=== PATIENT | female | born 1955 | race Caucasian/White ===

== ENCOUNTER → 2017-11-09 | Outpatient (CLI) | payer OTHER ==
[~2017-11-09] MED LIST: GADOBUTROL 10 ML VIAL IVP ONE
== END ==
LOC: FIMAGING 08:16
PROVIDERS: ATTEND Neurological Surgery
DX: D32.0 Benign neoplasm of cerebral meninges (principal)
CPT/HCPCS: A9585

== ENCOUNTER → 2019-02-02 | Outpatient (CLI) | LOC: EMCIMAGING 18:04 → MERGE 18:04 | PROVIDERS: ATTEND Nurse Practitioner Acute Care | DX: R05 Cough (principal); R06.02 Shortness of breath | CPT/HCPCS: 71046-PN ==

== ENCOUNTER 2019-03-06 09:12 | Inpatient (IN) | payer OTHER ==
[2019-03-06] MEDS ORDERED: NS 1,000 ML IV ONE ×2 (09:13→14:49)
[2019-03-06] MEDS ORDERED: DIAZEPAM 5 MG TAB PO ONE (09:13)
[2019-03-06] MEDS ORDERED: ASPIRIN EC 325 MG TAB PO ONE (09:13)
[2019-03-06] MEDS ORDERED: FAMOTIDINE 20 MG TAB PO ONE (09:13)
[2019-03-06] MEDS ORDERED: diphenhydrAMINE 25 MG CAP PO ONE (09:13)
[2019-03-06 10:05] LABS: PLATELET COUNT 269 10^3/uL (150-400)
[2019-03-06 10:12] LABS: INR 0.97 (0.83-1.16); PROTIME(PATIENT) 12.5 SEC (12.0-15.0)
[2019-03-06] MEDS ORDERED: LIDOCAINE 1% 300 MG/30 ML SDV ONE (10:13)
[2019-03-06] MEDS ORDERED: MIDAZOLAM 2 MG/2 ML VIAL ONE ×2 (10:13→11:22)
[2019-03-06] MEDS ORDERED: VERAPAMIL 5 MG/2 ML VIAL ONE (10:13)
[2019-03-06] MEDS ORDERED: fentaNYL 100 MCG/2 ML INJ ONE (10:13)
[2019-03-06] MEDS ORDERED: HEPARIN 10,000 UNIT/10 ML MDV (1,000 UNIT/ML) ONE (10:13)
[2019-03-06] MEDS ORDERED: IOPAMIDOL (ISOVUE-370) 150 ML BTL IV ONE (10:13)
[2019-03-06] MEDS ORDERED: EPINEPHrine 1 MG/10 ML SYR IVP ONE (10:26)
[2019-03-06] MEDS ORDERED: FAMOTIDINE 20 MG/NACL/50 ML BAG IV ONE (10:26)
[2019-03-06] MEDS ORDERED: methylPREDNISolone SOD SUCC 125 MG/2 ML VIAL ONE (10:26)
[2019-03-06] MEDS ORDERED: ONDANSETRON 4 MG/2 ML VIAL ONE (10:29)
[2019-03-06] MEDS ORDERED: ONDANSETRON 4 MG/2 ML VIAL IVP PRN (11:28)
[2019-03-06] MEDS ORDERED: NITROGLYCERIN 0.4 MG BTL SL PRN (11:28)
--- NOTE | 2019-03-06 11:29 | PDHPUP ---
History & Physical Update H&P update statement: This history and physical update is based on an assessment of the patient which was completed after admission or registration (within 24 hours), but prior to the surgery/procedure. H&P update: H&P reviewed & patient examined, no change in patient's condition since H&P completed
--- NOTE | 2019-03-06 11:29 | PDPROPOC ---
Sedation Plan of Care Sedation Plan of Care: vital signs stable, mental status noted, patient educated of risks, benefits, alternatives, patient can tolerate sedation ASA Classification: ASA 2 Planned drugs: fentanyl, midazolam Mallampati Score: Class 1 Mallampati Reference Image: Patient passed 3-3-2 rule?: Yes
--- NOTE | 2019-03-06 11:31 | PDDXCAT ---
Diagnostic Cath Note - . Date: 03/06/19 Hr Clerk: Juan Indication: other (Pre-op mitral valve repair.) - Procedure Access: right wrist Procedure: left heart catheterization, left ventriculogram, right heart catheterization - Materials Left Heart Cath size: 5F Left Heart Cath materials: pigtail, other ([place] 4) Right Heart Cath size: 5F Right Heart Cath materials: PWP catheter - Findings-Left Heart Catheterization LM: Normal LAD: Normal LCX: Normal RCA: Dominant: Normal - Findings-Right Heart Catheterization RA: 8 mm of mercury RV: 36/8 mm of mercury PA: 36/13 mm of mercury PAOP: 10 mm of mercury Complications: None Estimated blood loss: <50ml Closure method: TR Band Assessment: Normal right heart hemodynamics. Normal coronary arteries. Normal LV systolic function Patient Problems: Problems Problem Status Onset Chest pain Acute
--- NOTE | 2019-03-06 13:49 | PDGENHP ---
History and Physical - Chief Complaint SOB - History of Present Illness This is a pleasant 63F who presented today for elective LHC/RHC in preparation for MVR/R, TVR/R. She was originally seen in full consultation with Dr. Boudreaux in 2018. Surgery was recommended at that time, however, placed on hold due to insurance issues. She has had progressive MR (mild-moderate 2014, moderate- severe 2017) and TR (mild 2014, mild-moderate 2017). She continues to have SOB with evening peripheral edema (worse on R>L). This improves in the AM. LHC/RHC today demonstrates an absence of CAD with normal PA pressures. , Julio, is with her. They live in an [place] house with multiple stairs. No fever, chills, malaise. Previous Holter negative for afib. No chest surgery. History Information - Allergies/Home Medication List Allergies/Adverse Reactions: amoxicillin trihydrate [From Augmentin] Allergy (Verified 02/26/19 12:42) STOMACH PAIN/UPSET, NAUSEA codeine [Codeine] Allergy (Verified 02/26/19 12:42) "FEELS WIRED" Gadolinium-Containing Contrast Medi Allergy (Verified 02/26/19 12:42) gluten Allergy (Verified 02/26/19 12:42) latex Allergy (Verified 02/26/19 12:42) Rash potassium clavula *RETIRED-08/07/12 [From Augmentin] Allergy (Verified 02/26/19 12:42) STOMACH PAIN/UPSET, NAUSEA Home Medications: Hormone Cream 1 diana TD DAILY 03/01/19 [Last Taken Unknown] Azelastine [Astelin Nasal [place] (RX)] 1 sprays EACHNARE BID PRN 03/01/19 [Last Taken Unknown] Benzonatate [Tessalon Pearles (RX)] 100 mg PO TID PRN 03/01/19 [Last Taken Unknown] Diltiazem HCl [Diltiazem 24Hr ER] 120 mg PO HS 03/01/19 [Last Taken Unknown] FLUoxetine [Prozac 20 MG (*)] 20 mg PO DAILY 03/01/19 [Last Taken Unknown] Levalbuterol Inhaler [Xopenex Hfa Inhaler (*)] 2 puffs IH Q6H PRN 03/01/19 [ Last Taken Unknown] Montelukast Sodium [Singulair 10 mg (*)] 10 mg PO DAILY@1800 03/01/19 [Last Taken Unknown] buPROPion [Wellbutrin 75mg (*)] 75 mg PO DAILY 03/01/19 [Last Taken Unknown] I have personally reviewed and updated: family history, medical history, social history, surgical history - Past Medical History Additional medical history: sjogrens, pulm nodules, UTI's - Surgical History Reports: no pertinent surgical hx - Social History Smoking Status: Former smoker Tobacco Use: Other (remote) Review of Systems Review of Systems: ROS: 2-9 pt reviewed & negative except for what was stated in HPI & below Physical Exam Physical Exam: Constitutional: no apparent distress, appears nourished Ears, Nose, Mouth, Throat: hearing normal, ears appear normal, dry mucous membranes Cardiovascular: regular rate and rhythym, systolic murmur, other (trace edema LE b/l; radial artery cath splint ) Respiratory: no respiratory distress, no rales or rhonchi, clear to auscultation Gastrointestinal: soft, non-tender abdomen Skin: warm, normal color Neurologic: AAOx3 Psychiatric: interacting appropriately, thought process linear Lab Data & Imaging Review 03/06/19 09:30 03/06/19 09:30 WBC 5.47 10^3/uL (3.80-9.50) 03/06/19 09:30 RBC 4.47 10^6/uL (4.18-5.33) 03/06/19 09:30 Hgb 13.3 g/dL (12.6-16.3) 03/06/19 09:30 Hct 39.8 % (38.0-47.0) 03/06/19 09:30 MCV 89.0 fL (81.5-99.8) 03/06/19 09:30 MCH 29.8 pg (27.9-34.1) 03/06/19 09:30 MCHC 33.4 g/dL (32.4-36.7) 03/06/19 09:30 RDW 13.5 % (11.5-15.2) 03/06/19 09:30 Plt Count 269 10^3/uL (150-400) 03/06/19 09:30 MPV 9.7 fL (8.7-11.7) 03/06/19 09:30 Neut % (Auto) 63.8 % (39.3-74.2) 03/06/19 09:30 Lymph % (Auto) 23.6 % (15.0-45.0) 03/06/19 09:30 [place] % (Auto) 9.3 % (4.5-13.0) 03/06/19 09:30 Eos % (Auto) 2.4 % (0.6-7.6) 03/06/19 09:30 Baso % (Auto) 0.7 % (0.3-1.7) 03/06/19 09:30 Nucleat RBC Rel Count 0.0 % (0.0-0.2) 03/06/19 09:30 Absolute Neuts (auto) 3.49 10^3/uL (1.70-6.50) 03/06/19 09:30 Absolute Lymphs (auto) 1.29 10^3/uL (1.00-3.00) 03/06/19 09:30 Absolute Monos (auto) 0.51 10^3/uL (0.30-0.80) 03/06/19 09:30 Absolute Eos (auto) 0.13 10^3/uL (0.03-0.40) 03/06/19 09:30 Absolute Basos (auto) 0.04 10^3/uL (0.02-0.10) 03/06/19 09:30 Absolute Nucleated RBC 0.00 10^3/uL (0-0.01) 03/06/19 09:30 Immature Gran % 0.2 % (0.0-1.1) 03/06/19 09:30 Immature Gran # 0.01 10^3/uL (0.00-0.10) 03/06/19 09:30 PT 12.5 SEC (12.0-15.0) 03/06/19 09:30 INR 0.97 (0.83-1.16) 03/06/19 09:30 Sodium 135 mEq/L (135-145) 03/06/19 09:30 Potassium 4.2 mEq/L (3.5-5.2) 03/06/19 09:30 Chloride 102 mEq/L (97-110) 03/06/19 09:30 Carbon Dioxide 22 mEq/l (22-31) 03/06/19 09:30 Anion Gap 11 mEq/L (6-14) 03/06/19 09:30 BUN 10 mg/dL (7-23) 03/06/19 09:30 Creatinine 0.6 mg/dL (0.6-1.0) 03/06/19 09:30 Estimated GFR > 60 03/06/19 09:30 Glucose 92 mg/dL (70-100) 03/06/19 09:30 Hemoglobin A1c 5.2 % (4.0-6.0) 03/06/19 09:30 Estim Average Glucose 103 mg/dL (68-126) 03/06/19 09:30 Calcium 9.3 mg/dL (8.5-10.4) 03/06/19 09:30 Magnesium 2.1 mg/dL (1.6-2.3) 03/06/19 09:30 Triglycerides 85 mg/dL (35-135) 03/06/19 09:30 Cholesterol 169 mg/dL (140-220) 03/06/19 09:30 Cholesterol Risk Factr 0.5 (0.2-1.0) 03/06/19 09:30 LDL Cholesterol, Calc 93 mg/dL (80-100) 03/06/19 09:30 LDL Risk Factor 0.6 (0.2-1.0) 03/06/19 09:30 VLDL Cholesterol 17 mg/dL (8-25) 03/06/19 09:30 Non-HDL Cholesterol 110 mg/dL (90-129) 03/06/19 09:30 HDL Cholesterol 59 mg/dL (40-85) 03/06/19 09:30 LDL/HDL Ratio 1.58 RATIO (1.00-3.22) 03/06/19 09:30 Cholesterol/HDL Ratio 2.86 RATIO (1.00-4.44) 03/06/19 09:30 Patient ABO/Rh A POSITIVE 03/06/19 09:30 Antibody Screen NEGATIVE 03/06/19 09:30 Imaging Review: 03/21/2018 ECHO: Normal size left ventricle. Borderline concentric LV hypertrophy. EF is 62 %. The left atrium is severely dilated. Moderate to severe mitral regurgitation. Mild to moderate tricuspid valve regurgitation. Right Ventricular systolic pressure is measured at 31 mmHg. No pericardial effusion. 10/12/2016 ECHO: 62%. Mild LVH. Normal left ventricular systolic function with no regional wall motion abnormalities noted. oderate MR, mild TR. (MR is eccentric, moderate and posterior directed). Interatrial septal aneurysm noted and (no color Doppler across atrial septum to suggest a PFO or ASD). 10/10/2015 ECHO: EF 60% LV size: normal. LV thickness: normal. Normal LVSF with no regional wall motion abnormalities noted. LVDF: Normal. RV size: normal. RV function: normal. LA: normal size. RA: normal size. Aortic, mitral, tricuspid, and pulmonic valves are normal in appearance. Mild to moderate MR and mild TR. Normal RVSP. No pericardial effusion seen. 10/08/2015 Holter 48-hr: 1. Normal sinus rhythm with average heart rate of 70 . range 49 to 104 beats2. Rare PACs with occasional SVT self-limited and asymptomaticup to 18 beats. 3. Rare PVCs. 4. 2 symptoms. Both occurred in normal sinus rhythm. 5. No significant pauses 10/15/2015 MPI/NUC: Myocardial Perfusion Imaging: shows normal homogenous uptake of tracer equally in all myocardial regions on stress and rest imaging. There are no significant reversible defects suggestive of ischemia.There is normal left ventricular systolic function with no wall motion abnormalities with normal thickening . Ejection fraction is normal at >70 % LHC/RHC 03/06 LM: Normal LAD: Normal LCX: Normal RCA: Dominant: Normal RA: 8 mm of mercury RV: 36/8 mm of mercury PA: 36/13 mm of mercury PAOP: 10 mm of mercury CUS 03/06 1. There is mild bilateral atherosclerotic plaque, with some tortuosity of the right mid-internal carotid artery likely explaining the slightly increased measured velocities in this location. There is no hemodynamically significant stenosis associated with the left internal carotid artery. 2. Antegrade, patent vertebral arteries. Measurement of carotid stenosis is based on velocity parameters that correlate the residual internal carotid diameter with [place] Symptomatic Carotid Endarterectomy Trial (NASCET) based stenosis levels. EKG 03/06 NSR 76, LAE, ventricular trigeminy CXR 02/02/19 Findings: Nodular opacities in the right lung base are grossly stable, without focal consolidation, pneumothorax, or pleural effusion. Heart size is normal. Levoscoliosis of the thoracolumbar junction is present with multilevel degenerative change. Assessment & Plan Assessment: Moderate to severe MR Mild to moderate TR Left atrial dilatation EF 62% Normal coronary arteries Hyperlipidemia Plan: MVR/R, TVR/R tomorrow with Dr. Boudreaux. If patient needs replacement, she requests tissue valve and is not interested in lifelong anticoagulation.
--- NOTE | 2019-03-06 14:44 | CPEKG ---
Test Reason : OPEN Blood Pressure : / mmHG Vent. Rate : 076 BPM Atrial Rate : 075 BPM P-R Int : 156 ms QRS Dur : 087 ms QT Int : 418 ms P-R-T Axes : -09 011 025 degrees QTc Int : 471 ms Sinus rhythm Ventricular trigeminy Probable left atrial enlargement Confirmed by Ramin Martinez ([id number]) on 03/06/2019 2:44:18 PM Referred By: Unruly Loja Confirmed By:Ramin Martinez
[2019-03-06] MEDS ORDERED: AMINOCAPROIC ACID 5 GM/20 ML VIAL IV ONE (14:49)
[2019-03-06] MEDS ORDERED: PHENYLEPHRINE HCL 50 MG in NS 250 ML IV ONE (14:49)
[2019-03-06] MEDS ORDERED: ceFAZolin 2 GM/DEXTROSE 100 ML IV ONE (14:49)
[2019-03-06] MEDS ORDERED: INSULIN REGULAR HUMAN 100 UNIT in NS 100 ML IV ONE (14:49)
[2019-03-06] MEDS ORDERED: LIDOCAINE 1% 2 ML INJ ID PRN (14:49)
[2019-03-06] MEDS ORDERED: MANNITOL 25% 12.5 GM/50 ML VIAL IVP ONE (14:49)
[2019-03-06] MEDS ORDERED: CARDIOPLEGIC SOLUTION 1,052.8 ML PF ONE (14:49)
[2019-03-06] MEDS ORDERED: NOREPINEPHRINE BITARTRATE 16 MG in NS 250 ML IV ONE (14:49)
[2019-03-06] MEDS ORDERED: MUPIROCIN 2% 22 GM OINT NS ONE (14:49)
[2019-03-06] MEDS ORDERED: CITRATE DEXTROSE SOLN 500 ML BAG MISC ONE (14:49)
[2019-03-06] MEDS ORDERED: LEVALBUTEROL INHALER 200 PUFFS/15 GM MDI IH PRN (15:06)
[2019-03-06] MEDS ORDERED: AZELASTINE NASAL MDI EACHNARE PRN (15:06)
[2019-03-06] MEDS ORDERED: CHLORHEXIDINE GLUC HIBICLENS 118 ML BTL TP SCH (21:00)
[2019-03-06] MEDS ORDERED: DILTIAZEM CD 120 MG CAP PO SCH (21:00)
[2019-03-06] MEDS: BENZONATATE 100 MG CAP PO PRN (21:49)
[2019-03-06] MEDS: MONTELUKAST SODIUM 10 MG TAB PO SCH (21:50)
[2019-03-07] MEDS ORDERED: MILRINONE/DEXTROSE/100 ML BAG IV ONE (06:15)
[2019-03-07] MEDS ORDERED: CALCIUM CHLORIDE 1 GM/10 ML INJ ONE ×2 (06:15→06:16)
[2019-03-07] MEDS ORDERED: HEPARIN 10,000 UNIT/10 ML MDV (1,000 UNIT/ML) ONE ×2 (06:15→06:17)
[2019-03-07] MEDS ORDERED: AMINOCAPROIC ACID 5 GM/20 ML VIAL ONE ×2 (06:15→06:17)
[2019-03-07] MEDS ORDERED: niCARdipine/NACL/200 ML BAG IV ONE (06:15)
[2019-03-07] MEDS ORDERED: PROTAMINE SULFATE 50 MG/5 ML VIAL IVP ONE (06:15)
[2019-03-07] MEDS ORDERED: NA BICARBONATE 50 MEQ/50 ML VIAL ONE (06:15)
[2019-03-07] MEDS ORDERED: ADENOSINE 6 MG/2 ML VIAL ONE (06:16)
[2019-03-07] MEDS ORDERED: AMIODARONE HCL 150 MG/3 ML VIAL ONE ×2 (06:16→06:17)
[2019-03-07] MEDS ORDERED: ceFAZolin 1 GM VIAL ONE (06:16)
[2019-03-07] MEDS ORDERED: NITROGLYCERIN/D5W 50 MG/250 ML BOTTLE IV ONE (06:16)
[2019-03-07] MEDS ORDERED: DOPamine/DEXTROSE 400 MG/250 ML BAG IV ONE (06:16)
[2019-03-07] MEDS ORDERED: ALBUMIN 5% 250 ML BOTTLE IV ONE ×3 (06:16→16:35)
[2019-03-07] MEDS ORDERED: methylPREDNISolone SOD SUCC 1 GM/8 ML VIAL ONE (06:17)
[2019-03-07] MEDS ORDERED: CITRATE DEXTROSE SOLN 500 ML BAG ONE (06:17)
[2019-03-07] MEDS ORDERED: LIDOCAINE 2% 100 MG/5 ML SYR ONE ×2 (06:17→09:00)
[2019-03-07] MEDS ORDERED: MAGNESIUM SULFATE 1 GM/2 ML VIAL ONE (06:17)
[2019-03-07] MEDS ORDERED: PHENYLEPHRINE HCL 50 MG in NS 250 ML IV ONE (07:00)
[2019-03-07] MEDS ORDERED: CITRATE DEXTROSE SOLN 500 ML BAG MISC ONE (07:00)
[2019-03-07] MEDS ORDERED: MUPIROCIN 2% 22 GM OINT NS ONE (07:00)
[2019-03-07] MEDS ORDERED: AMINOCAPROIC ACID 5 GM/20 ML VIAL IV ONE (07:00)
[2019-03-07] MEDS ORDERED: NOREPINEPHRINE BITARTRATE 16 MG in NS 250 ML IV ONE (07:00)
[2019-03-07] MEDS ORDERED: NS 1,000 ML IV ONE ×2 (07:00→21:30)
[2019-03-07] MEDS ORDERED: CARDIOPLEGIC SOLUTION 1,052.8 ML PF ONE (07:00)
[2019-03-07] MEDS ORDERED: INSULIN REGULAR HUMAN 100 UNIT in NS 100 ML IV ONE (07:00)
[2019-03-07] MEDS ORDERED: ceFAZolin 2 GM/DEXTROSE 100 ML IV ONE (07:00)
[2019-03-07] MEDS ORDERED: LIDOCAINE 1% 2 ML INJ ID PRN (07:00)
[2019-03-07] MEDS ORDERED: MANNITOL 25% 12.5 GM/50 ML VIAL IVP ONE (07:00)
[2019-03-07] MEDS ORDERED: LR 1,000 ML IV ONE (07:40)
--- NOTE | 2019-03-07 07:54 | PDHPUP ---
History & Physical Update H&P update statement: This history and physical update is based on an assessment of the patient which was completed after admission or registration (within 24 hours), but prior to the surgery/procedure. H&P update: no change in patient's condition since H&P completed
[2019-03-07] MEDS ORDERED: MIDAZOLAM 2 MG/2 ML VIAL IVP ONE (08:35)
[2019-03-07] MEDS ORDERED: MINERAL OIL 10 ML VIAL ONE (08:40)
[2019-03-07] MEDS ORDERED: MIDAZOLAM 2 MG/2 ML VIAL ONE ×3 (08:41→08:57)
--- NOTE | 2019-03-07 08:42 | PDANEPAE ---
ANE History of Present Illness MR and TR s/f MVR and TVR ANE Past Medical History - Cardiovascular History Hx Hypertension: Yes Hx Arrhythmias: No Hx Chest Pain: No Hx Coronary Artery / Peripheral Vascular Disease: No Hx CHF / Valvular Disease: Yes Hx Palpitations: Yes Cardiovascular History Comment: mitral valve prolapse. tricupsid valve disorder. pulm htn - Pulmonary History Hx COPD: No Hx Asthma/Reactive Airway Disease: Yes Hx Recent Upper Respiratory Infection: No Hx Oxygen in Use at Home: No Hx Sleep Apnea: Yes Sleep Apnea Screening Result - Last Documented: Positive Pulmonary History Comment: hx of bronchitis. asthma r/t allergies. delaney positive uses cpap. chronic cough - Neurologic History Hx Cerebrovascular Accident: No Hx Seizures: No Hx Dementia: No Neurologic History Comment: DDD. hx of migraines - Endocrine History Hx Diabetes: No Endocrine History Comment: sjogrens syndrome - Renal History Hx Renal Disorders: Yes Renal History Comment: frequency - Liver History Hx Hepatic Disorders: Yes Hepatic History Comment: hx of fatty liver disease several years ago- pt reports liver numbers have been good since - Neurological & Psychiatric Hx Hx Neurological and Psychiatric Disorders: Yes Neurological / Psychiatric History Comment: anxiety. depression - Cancer History Hx Cancer: Yes Cancer History Comment: basal cell removed from arm a few years ago - Congenital Disorder History Hx Congenital Disorders: No - GI History Hx Gastrointestinal Disorders: Yes Gastrointestinal History Comment: reflux. IBS. hx of egd and colonoscopy - Other Health History Other Health History: wears glasses. bilateral hearing aides. eczema spot on arm. fibromyalgia - Chronic Pain History Chronic Pain: Yes (fibromyalgia) - Surgical History Prior Surgeries: juan. colonoscopy. egd. thyroid lobectomy. t&a. wisdom teeth ANE Review of Systems Review of Systems: - Exercise capacity METS (RN): 3 METS ANE Patient History - Allergies Allergies/Adverse Reactions: amoxicillin trihydrate [From Augmentin] Allergy (Verified 02/26/19 12:42) STOMACH PAIN/UPSET, NAUSEA codeine [Codeine] Allergy (Verified 02/26/19 12:42) "FEELS WIRED" Gadolinium-Containing Contrast Medi Allergy (Verified 02/26/19 12:42) gluten Allergy (Verified 02/26/19 12:42) latex Allergy (Verified 02/26/19 12:42) Rash potassium clavula *RETIRED-08/07/12 [From Augmentin] Allergy (Verified 02/26/19 12:42) STOMACH PAIN/UPSET, NAUSEA - Home Medications Home medications: home medication list seen and reviewed Home Medications: Hormone Cream 1 diana TD DAILY 03/01/19 [Last Taken Unknown] Azelastine [Astelin Nasal [place] (RX)] 1 sprays EACHNARE BID PRN 03/01/19 [Last Taken Unknown] Benzonatate [Tessalon Pearles (RX)] 100 mg PO TID PRN 03/01/19 [Last Taken Unknown] Diltiazem HCl [Diltiazem 24Hr ER] 120 mg PO HS 03/01/19 [Last Taken Unknown] FLUoxetine [Prozac 20 MG (*)] 20 mg PO DAILY 03/01/19 [Last Taken Unknown] Levalbuterol Inhaler [Xopenex Hfa Inhaler (*)] 2 puffs IH Q6H PRN 03/01/19 [ Last Taken Unknown] Montelukast Sodium [Singulair 10 mg (*)] 10 mg PO DAILY@1800 03/01/19 [Last Taken Unknown] buPROPion [Wellbutrin 75mg (*)] 75 mg PO DAILY 03/01/19 [Last Taken Unknown] - NPO status NPO Status: no food or drink >8 hours NPO Since - Liquids (Date): 03/06/19 NPO Since - Liquids (Time): 22:30 NPO Since - Solids (Date): 03/07/19 NPO Since - Solids (Time): 07:00 - Anes Hx Anes Hx: no prior problems - Smoking Hx Smoking Status: Former smoker - Alcohol Use Alcohol Use: None - Family Anes Hx Family Anes Hx: none Family Hx Anesthesia Complications: none ANE Labs/Vital Signs - Labs Result Diagrams: 03/06/19 09:30 03/06/19 09:30 - Vital Signs Blood Pressure: 152/79 Heart Rate: 87 Respiratory Rate: 16 O2 Sat (%): 93 Height: 165.1 cm Weight: 93.4 kg ANE Physical Exam - Airway Neck exam: FROM Mallampati Score: Class 2 Mouth exam: poor dentition - Pulmonary Pulmonary: no respiratory distress - Cardiovascular Cardiovascular: regular rate and rhythym - ASA Status ASA Status: III ANE Anesthesia Plan Anesthesia Plan: general endotracheal anesthesia Lines/Monitors: arterial line, central line, NUPUR
[2019-03-07] MEDS ORDERED: fentaNYL 250 MCG/5 ML INJ ONE (08:56)
[2019-03-07] MEDS ORDERED: REMIFENTANIL HCL 1 MG VIAL ONE (08:56)
[2019-03-07] MEDS ORDERED: PROPOFOL/EMULSION 500 MG/50 ML BOTTLE IV ONE (08:56)
[2019-03-07] MEDS ORDERED: ePHEDrine SULFATE 25 MG/5 ML SYR ONE (08:57)
[2019-03-07] MEDS ORDERED: ROCURONIUM 100 MG/10 ML VIAL ONE (08:57)
[2019-03-07] MEDS ORDERED: DEXAMETHASONE 4 MG/ML VIAL ONE ×2 (08:57)
[2019-03-07] MEDS ORDERED: PHENYLEPHRINE HCL 100 MCG/ML SYR ONE (08:58)
[2019-03-07] MEDS ORDERED: DEXMEDETOMIDINE HCL 400 MCG in NS 100 ML IV SCH (09:00)
[2019-03-07] MEDS ORDERED: ONDANSETRON 4 MG/2 ML VIAL ONE (09:02)
[2019-03-07] MEDS ORDERED: LIDOCAINE HCL 160 MG/4 ML LTA KIT TP ONE (09:07)
--- NOTE | 2019-03-07 09:21 | ASMTCMCOM ---
CM Note CM Note Notes: Pt is a 63 y/o female admitted for shortness of breath. Pt is having open heart surgery today. Needs are TBD at this time. CM to follow. Plan: TBD Date Signed: 03/07/2019 09:20 AM Electronically Signed By:HALEY Shannon
[2019-03-07] MEDS ORDERED: ALBUTEROL 60 PUFFS/8 GM MDI IH PRN (09:24)
[2019-03-07] MEDS ORDERED: ESMOLOL HCL 100 MG/10 ML VIAL IV ONE (10:02)
[2019-03-07] MEDS ORDERED: KETOROLAC 30 MG/1 ML SDV ONE (10:21)
[2019-03-07] MEDS ORDERED: SUGAMMADEX SODIUM 200 MG/2 ML VIAL IVP ONE (11:59)
[2019-03-07] MEDS ORDERED: POTASSIUM Cl (KCl) 50 ML IV PRN (12:23)
[2019-03-07] MEDS ORDERED: ACETAMINOPHEN 650 MG SUPP PR PRN (12:23)
[2019-03-07] MEDS ORDERED: D50W 25 GM/50 ML SYR IVP PRN (12:23)
[2019-03-07] MEDS ORDERED: LACTULOSE 20 GM/30 ML UDCUP PO PRN (12:23)
[2019-03-07] MEDS ORDERED: BISACODYL 10 MG SUPP PR PRN (12:23)
[2019-03-07] MEDS ORDERED: CEPACOL LOZENGE PO PRN (12:23)
[2019-03-07] MEDS ORDERED: SODIUM CL NASAL 45 ML BTL EACHNARE PRN (12:23)
[2019-03-07] MEDS ORDERED: MEPERIDINE 25 MG/0.5 ML AMP IVP PRN (12:23)
[2019-03-07] MEDS ORDERED: PANTOPRAZOLE SODIUM 40 MG VIAL IVP ONE (12:23)
[2019-03-07] MEDS ORDERED: MAGNESIUM HYDROXIDE 30 ML UDCUP PO PRN (12:23)
[2019-03-07] MEDS ORDERED: NS 1,000 ML IV SCH (12:30)
[2019-03-07] MEDS ORDERED: INSULIN REGULAR HUMAN 100 UNIT in NS 100 ML IV SCH (12:30)
[2019-03-07] MEDS ORDERED: fentaNYL 100 MCG/2 ML INJ ONE (12:31)
[2019-03-07] MEDS: fentaNYL 100 MCG/2 ML INJ IVP PRN ×2 (13:00→16:38)
--- NOTE | 2019-03-07 13:01 | PDMN ---
Medical Necessity Medical necessity: Change to inpt as of 03/07/19 @ 12:38, meets inpt criteria per MD order and [facility] S-290, Cardiac Valve Replacement or Repair, MCR IP only list, 5 days. Initially admitted as OBS on 03/06/19 for pre-OHS LHC, upgraded to inpt for s/p MVR, TVR, PVI, and TAMEKA. Anticipate>2MN for ongoing med nec care.
--- NOTE | 2019-03-07 13:10 | GOP ---
[f rep st] OPERATIVE REPORT DATE OF OPERATION: 03/07/2019 SURGEON: Demond Boudreaux DO BILLPOSTER: BALDO Love ANESTHESIA: Ruddy Gill MD PREOPERATIVE DIAGNOSIS: Mitral insufficiency, tricuspid insufficiency. POSTOPERATIVE DIAGNOSIS: Mitral insufficiency, tricuspid insufficiency. PROCEDURE PERFORMED: 1. Mitral valve repair with a #26 Physio II annuloplasty ring. 2. Tricuspid valve annuloplasty with a #30 Benitez annuloplasty ring. 3. Atrial clip to left atrial appendage with a 40 mm clip. 4. Bilateral pulmonary vein ablation. FINDINGS: INDICATIONS: Patient presented with a history of multiple palpitations and markedly enlarged left at rium and severe mitral insufficiency, as well as secondary tricuspid insufficiency, quite symptomatic with shortness of breath. DESCRIPTION OF PROCEDURE: She was consented for surgery, brought to the operating room, intubated. Monitoring lines were placed. She was prepped and draped in sterile classical manner. Intraoperativ e NUPUR confirmed mitral and tricuspid insufficiency. Sternotomy was performed. She was heparinized a nd cannulated. We initiated cardiopulmonary bypass because of her markedly enlarged left atrium and a history of multiple palpitations. Bilateral pulmonary vein ablation was performed on pump with 3 o verlapping lines with the last of each line ablation being less than 5 seconds. We then arrested the heart with antegrade cardioplegia using [place] solution. Left atrial appendage and atrial clip pl aced avoiding the circumflex vessel. The tip of it was excised to allow it to decompress. We then e xposed the mitral valve through the right superior pulmonary vein. Circumferential sutures were plac ed. Patient was sized for a 26 ring. She had predominantly posterior annular dilatation. The valve was competent post repair. The left atrium was closed. CO2 had been infused throughout the procedu re. We then patient placed the patient in Trendelenburg, performed an atriotomy, placed circumferent ial annuloplasty suture rings. We sized the patient for a 30 Benitez ring, which was secured in plac e with Cor-Knots. Right atrium was closed. Cross-clamp was removed with suction on the ascending ao rtic vent. Intermittent aspiration in Trendelenburg through the apex was performed until no further air was identified. The patient was then easily weaned from bypass. There was no mitral regurg on e cho or tricuspid regurg on echo. Biventricular function appeared preserved. Cannulae were removed a nd oversewn. Two ventricular pacing wires, 1 right pleural, 1 mediastinal drain, were placed. The t hymic fat and pericardium were closed. Chest was closed in standard fashion. Patient was returned t o ICU in stable condition. /[id number]/MODL
[2019-03-07] MEDS: ALBUMIN 5% 250 ML IV PRN ×2 (13:36→14:04)
[2019-03-07] MEDS: ceFAZolin 2 GM/DEXTROSE 100 ML IV SCH ×2 (14:02→21:46)
[2019-03-07] MEDS: HEPARIN 5,000 UNIT/0.5 ML INJ SC SCH ×2 (14:30→21:46)
[2019-03-07] MEDS: ONDANSETRON 4 MG/2 ML VIAL IVP PRN (15:11)
[2019-03-07] MEDS ORDERED: HYDROmorphONE/DILAUDID 6 MG/30 ML PCA IV PRN (16:50)
[2019-03-07] MEDS ORDERED: NALOXONE HCL 0.4 MG/ML INJ IVP PRN (16:50)
[2019-03-07] MEDS ORDERED: ALBUMIN 5% 250 ML IV ONE (17:00)
[2019-03-07] MEDS: MONTELUKAST SODIUM 10 MG TAB PO SCH (17:47)
[2019-03-07] MEDS: KETOROLAC 15 MG/1 ML SDV IVP SCH ×2 (17:47→23:38)
[2019-03-07] MEDS ORDERED: NOREPINEPHRINE BITARTRATE 16 MG in NS 250 ML IV SCH (18:00)
[2019-03-07] MEDS: MUPIROCIN 2% 22 GM OINT NS SCH (21:46)
[2019-03-08 04:55] LABS: PLATELET COUNT 178 10^3/uL (150-400)
[2019-03-08] MEDS: ceFAZolin 2 GM/DEXTROSE 100 ML IV SCH ×3 (06:01→21:37)
[2019-03-08] MEDS: KETOROLAC 15 MG/1 ML SDV IVP SCH (06:01)
[2019-03-08] MEDS: HEPARIN 5,000 UNIT/0.5 ML INJ SC SCH ×3 (06:01→21:37)
--- NOTE | 2019-03-08 06:55 | SOAPPROG ---
SOAP Progress Note Assessment/Plan: POD #1: MV repair with #26 Physio annuloplasty ring, TV repair with #30 Benitez annuloplasty ring, BL PVI ablation, AtriClip exclusion TAMEKA Severe MR and moderate TR s/p MV/TV repair with annuloplasty rings - AL/FC out/CTs to bulb suction - Thromboprophylaxis with Coumadin as per PV ablation LAE with palpitations s/p BL PVI ablation - Junctional in 40s - continue BAKER TEST for optimized HDs - AF prophylaxis with BB/CCB avoided d/t bradycardia - Thromboprophylaxis with Coumadin, INR gal 2-3, duration pending stability of SR - will start 03/09 Acute post-op blood loss anemia - Stable without the need for transfusions Asthma - Continue albuterol prn as per pre-op - Further mgmt as per pulm Depression - Will restart Prozac/Wellbutrin DVT prophylaxis - SCDs/heparin SQ Disposition - ICU status for pacing dependence Subjective: c/o incisional CP with inability to take deep breaths Objective: Vital Signs Temp Pulse Resp BP Pulse Ox 37.1 C 80 16 97/62 L 94 03/08/19 04:00 03/08/19 06:00 03/08/19 06:00 03/08/19 06:00 03/08/19 06:00 Laboratory Results 03/08/19 04:08 03/08/19 04:08 03/07/19 03/08/19 03/09/19 05:59 05:59 05:59 Intake Total 350 2883.7 Output Total 1301 Balance 350 1582.7 PT 12.5 SEC (12.0-15.0) 03/06/19 09:30 INR 0.97 (0.83-1.16) 03/06/19 09:30 Physical Exam - Physical Exam General Appearance: WD/WN, alert, mild distress, obese EENT: No scleral icterus (R), No scleral icterus (L) Neck: normal inspection Respiratory: No respiratory distress Cardiac/Chest: bradycardia Abdomen: non-tender, soft, No distended Skin: normal color, warm/dry Extremities: pedal edema Neuro/Psych: no motor/sensory deficits, alert, normal mood/affect, oriented x 3 ICD10 Worksheet Patient Problems: Problems Problem Status Onset Acute blood loss anemia Acute S/P MVR (mitral valve repair) Acute S/P TVR (tricuspid valve repair) Acute S/P left atrial appendage ligation Acute Status post circumferential ablation of pulmonary vein Acute Chest pain Acute
[2019-03-08] MEDS: ONDANSETRON DISINTEGRATING 4 MG TAB PO PRN (06:58)
[2019-03-08] MEDS ORDERED: NS 1,000 ML IV SCH (07:45)
[2019-03-08] MEDS: FLUoxetine 20 MG CAP PO SCH (09:09)
[2019-03-08] MEDS: buPROPion 75 MG TAB PO SCH (09:09)
[2019-03-08] MEDS: MUPIROCIN 2% 22 GM OINT NS SCH ×2 (09:10→20:42)
[2019-03-08] MEDS: HYDROCODONE/APAP 5/325 TAB PO PRN ×2 (10:27→18:43)
[2019-03-08] MEDS: PANTOPRAZOLE SODIUM 40 MG TAB PO SCH (12:23)
[2019-03-08] MEDS ORDERED: ASPIRIN 81 MG CHEWABLE TAB TUBE PRN (12:23)
[2019-03-08] MEDS: ASPIRIN 81 MG CHEWABLE TAB PO SCH (12:23)
[2019-03-08] MEDS: KETOROLAC 30 MG/1 ML SDV IVP PRN ×2 (12:34→19:19)
[2019-03-08] MEDS: ONDANSETRON 4 MG/2 ML VIAL IVP PRN ×2 (13:18→18:38)
[2019-03-08] MEDS: traMADol 50 MG TAB PO PRN ×2 (14:31→20:41)
--- NOTE | 2019-03-08 14:54 | POSTANESTH ---
Post Anesthetic Evaluation Cardiovascular Status: Other, See Comment (still paced, otherwise stable) Respiratory Status: Normal, Stable, Tx Decrease in SpO2 Level of Consciousness/Mental Status: Can Participate in Eval, Mildly Sleepy, Arousable Pain Control: Adequate, Prn Tx Ordered Nausea/Vomiting Control: Adequate, Prn Tx Ordered Complications Possibly Related to Anesthesia: None Noted
[2019-03-08] MEDS: MONTELUKAST SODIUM 10 MG TAB PO SCH (17:31)
--- NOTE | 2019-03-08 19:36 | CPEKG ---
Test Reason : OPEN Blood Pressure : / mmHG Vent. Rate : 080 BPM Atrial Rate : 161 BPM P-R Int : 176 ms QRS Dur : 145 ms QT Int : 489 ms P-R-T Axes : -69 -60 107 degrees QTc Int : 565 ms Ventricular-paced rhythm Confirmed by Ramin Martinez ([id number]) on 03/08/2019 7:35:31 PM Referred By: Demond Boudreaux Confirmed By:Ramin Martinez
[2019-03-08] MEDS: SENNOSIDES/DOCUSATE SODIUM TAB PO SCH (20:41)
[2019-03-09] MEDS: KETOROLAC 30 MG/1 ML SDV IVP PRN (01:03)
[2019-03-09] MEDS: ONDANSETRON 4 MG/2 ML VIAL IVP PRN ×2 (01:29→07:52)
[2019-03-09] MEDS: traMADol 50 MG TAB PO PRN ×2 (04:00→09:55)
[2019-03-09 04:25] LABS: PLATELET COUNT 160 10^3/uL (150-400)
[2019-03-09 04:34] LABS: INR 1.2 (0.83-1.16); PROTIME(PATIENT) 14.7 SEC (12.0-15.0)
[2019-03-09] MEDS: HEPARIN 5,000 UNIT/0.5 ML INJ SC SCH ×3 (06:35→21:51)
[2019-03-09] MEDS: oxyCODONE IR 5 MG TAB PO PRN ×4 (07:52→22:04)
--- NOTE | 2019-03-09 07:59 | SOAPPROG ---
SOAP Progress Note Assessment/Plan: POD #2: MV repair with #26 Physio annuloplasty ring, TV repair with #30 Benitez annuloplasty ring, BL PVI ablation, AtriClip exclusion TAMEKA Severe MR and moderate TR s/p MV/TV repair with annuloplasty rings - CTs to bulb suction - Thromboprophylaxis with Coumadin as per BL PVI ablation LAE with palpitations s/p BL PVI ablation - Junctional in 60s with adequate HD - AF prophylaxis with BB/CCB avoided d/t bradycardia - Thromboprophylaxis with Coumadin, INR goal 2-3, duration pending stability of SR Acute post-op blood loss anemia - Stable without the need for transfusions KEVEN likely pre-renal - CR up to 1.3 - K 5.0 - monitor closely - Limited TTE to r/o pericardial effusions, LV/RV dysfuncton - NS @ 75cc/h for 24 hours Asthma - Continue albuterol prn as per pre-op - Further mgmt as per pulm Depression - Prozac/Wellbutrin restarted DVT prophylaxis - SCDs/heparin SQ Disposition - Continue ICU care Subjective: c/o incisional CP with inability to take deep breaths Objective: Vital Signs Temp Pulse Resp BP Pulse Ox 36.8 C 60 14 120/62 97 03/09/19 04:00 03/09/19 06:00 03/09/19 06:00 03/09/19 06:00 03/09/19 06:00 Laboratory Results 03/09/19 04:00 03/09/19 04:00 03/08/19 03/09/19 03/10/19 05:59 05:59 05:59 Intake Total 2883.7 2700 Output Total 1301 925 Balance 1582.7 1775 PT 14.7 SEC (12.0-15.0) 03/09/19 04:00 INR 1.20 (0.83-1.16) H 03/09/19 04:00 Physical Exam - Physical Exam General Appearance: WD/WN, alert, mild distress, obese EENT: No scleral icterus (R) Neck: normal inspection Respiratory: pain on movement Cardiac/Chest: other (JR 60s) Abdomen: non-tender, soft, No distended Skin: normal color, warm/dry Extremities: pedal edema Neuro/Psych: no motor/sensory deficits, alert, normal mood/affect, oriented x 3 ICD10 Worksheet Patient Problems: Problems Problem Status Onset Acute blood loss anemia Acute S/P MVR (mitral valve repair) Acute S/P TVR (tricuspid valve repair) Acute S/P left atrial appendage ligation Acute Status post circumferential ablation of pulmonary vein Acute Chest pain Acute
[2019-03-09] MEDS: POLYETHYLENE GLYCOL 3350 17 GM PKT PO PRN (09:36)
[2019-03-09] MEDS: SENNOSIDES/DOCUSATE SODIUM TAB PO SCH ×2 (09:36→22:02)
[2019-03-09] MEDS: FLUoxetine 20 MG CAP PO SCH (09:36)
[2019-03-09] MEDS: ASPIRIN 81 MG CHEWABLE TAB PO SCH (09:37)
[2019-03-09] MEDS: buPROPion 75 MG TAB PO SCH (09:37)
[2019-03-09] MEDS: PANTOPRAZOLE SODIUM 40 MG TAB PO SCH (09:37)
[2019-03-09] MEDS: ACETAMINOPHEN 325 MG TAB PO PRN ×3 (09:53→22:03)
[2019-03-09] MEDS: NS 1,000 ML IV SCH ×2 (09:57→22:12)
[2019-03-09] MEDS: MUPIROCIN 2% 22 GM OINT NS SCH (09:59)
--- NOTE | 2019-03-09 10:43 | ECHO ---
[email or web address] [address] [address] Main: [phone] Echocardiography Examination Transthoracic Name: REGAN LARSON MR#: [id number] Study Date: 03/09/2019 Study Time: 09:08 AM Date of : 1955 Age: 63 year(s) Height: 165.1 cm (65 in.) Weight: 97.98 kg (216 lb.) BSA: 2.04 m2 Gender: Female Examination: Echo Contrast: Image Quality: Adequate Rhythm: Heart Rate: BP: / Indication: Evaluate LV/RV function, r/o pericardial effusion Procedure Staff Referring Physician: Hand Cutter: Jacqueline Davis [facility] Reading Physician: Chidi Ruby MD Requesting Provider: Ordering Physician: Liang Cadena Indication: Evaluate LV/RV function, r/o pericardial effusion Blood pressure not available Measurements Chambers AV/MV Label Value Normal Value Label Value Normal Value LVOTd 2 cm (1.8cm - 2cm) AV PGmax 15 mmHg LVOT VTI 27.9 cm (18cm - 22cm) AV PGmean 9 mmHg LVDd, 2D 4.6 cm (3.9cm - 5.3cm) AV Vmax 1.91 m/s LVDs, 2D 2.4 cm (2.1cm - 4cm) MARLENY (VTI) 2.5 cm2 IVSd, 2D 1 cm (0.6cm - 1.1cm) MV E Vmax 1.54 m/s LVPWd, 2D 0.9 cm MV A Vmax 0.67 m/s LVEF, BP 61 % (55% - 70%) MV E/A 2.3 LVEF, 2D 79 % (54% - 74%) MV DT 320 ms LVOT PGmean 7 mmHg MV VTI 62.6 cm LVOT Vmean 1.26 m/s MVA D (continuity eq.) 1.4 cm2 RVDd, 2D 2.8 cm (1.9cm - 3.8cm) MV PGmax 15 mmHg LA Volume, BP 55 ml (22ml - 52ml) MV PGmean 5 mmHg LADs, 2D 3.5 cm (2.7cm - 3.8cm) MV PHT 0.09 s LAESV index, BP 27 ml/m2 MVA PHT 2.4 cm2 RA Area 12.7 cm2 MV PHT 93 ms Additional Vessels TV/PV Label Value Normal Value Label Value Normal Value Patient: REGAN LARSON Study Date: 03/09/2019 Page 1 of 3 09:08 AM AoAsc 3 cm RA Pressure 5 mmHg AoRoot, 2D 2.8 cm (1.4cm - 2.6cm) RVSP 31 mmHg IVC 2.5 cm (1.2cm - 2.3cm) TR Pmax 26 mmHg TR Vmax 2.54 m/s TV PGmax 8 mmHg TV PGmean 4 mmHg TV Vmax 1.39 m/s (0.3m/s - 0.7m/s) TV Vmax, Caliper 1.39 m/s (0.3m/s - 0.7m/s) TV Vmean 0.81 m/s TV VTI 36.2 cm PV PGmax 2 mmHg PV Vmax, Caliper 0.73 m/s (0.6m/s - 0.9m/s) Conclusions Left Ventricle: EF range is estimated at 55 % - 60 %. Mitral Valve: #26 Physio II annuloplasty ring is in the mitral position. The prosthetic mitral valve leaflets appear normal. The mitral valve prosthesis exhibits normal function. Aortic Valve: Mild aortic regurgitation is present. Tricuspid Valve: There is a #30 Benitez annuloplasty in the tricuspid position. Tricuspid valve prosthesis function is normal. There is mild perivalvular tricuspid regurgitation. Pericardium: A small pericardial effusion was identified. Findings Post op. Left Ventricle: Left ventricle is normal in size. Normal global systolic left ventricular function. The ejection fraction, measured by Simpsons method, is 61 %. EF range is estimated at 55 % - 60 %. Left ventricle wall thickness is normal. There are no regional wall motion abnormalities. Right Ventricle: Normal size right ventricle. Right ventricular systolic function is normal. Left Atrium: The left atrium is normal in size. Right Atrium: The right atrium is normal in size. Mitral Valve: #26 Physio II annuloplasty ring is in the mitral position. The prosthetic mitral valve leaflets appear normal. The mitral valve prosthesis exhibits normal function. Prosthetic mitral valve orifice motion is normal. No MV prosthesis regurgitation. Aortic Valve: Aortic leaflets are structurally normal. Mild aortic regurgitation is present. There is no aortic stenosis. Tricuspid Valve: Patient: REGAN LARSON Study Date: 03/09/2019 Page 2 of 3 09:08 AM There is a #30 Benitez annuloplasty in the tricuspid position. The prosthetic tricuspid valve is normal. Tricuspid valve prosthesis function is normal. The orifice motion of the tricuspid prosthesis is normal. There is mild perivalvular tricuspid regurgitation. Right Ventricular systolic pressure is measured at 31 mmHg. Pulmonary artery pressure normal. Pulmonic Valve: Pulmonic valve not well visualized. Aorta: The aortic root size in 2D measures 2.8 cm. The ascending aorta measures 3.0 cm. Aorta Measurements AoRoot, 2D is 2.8 cm. IVC: The inferior vena cava is mildly dilated. Pericardium: A small pericardial effusion was identified. Exam Details Procedure Ordered: Echo Procedure Status: Routine study Image Quality: Adequate Facility Location: Bedside (No Signature Object) Patient: REGAN LARSON Study Date: 03/09/2019 Page 3 of 3 09:08 AM [id number]
--- NOTE | 2019-03-09 11:31 | ASMTCMCOM ---
CM Note CM Note Notes: Patient will transfer to the floor today. PT/OT recommending home as patient will most likely do cardiac rehab on an outpatient basis. D/C plan: independent. CM available for any d/c needs that might arise. Date Signed: 03/09/2019 11:29 AM Electronically Signed By:Altagracia Root LCSW
[2019-03-09] MEDS ORDERED: WARFARIN SODIUM 2.5 MG TAB PO ONE (16:00)
[2019-03-09] MEDS: APP TP SCH (17:58)
[2019-03-09] MEDS: BIEST TP SCH (17:58)
[2019-03-09] MEDS: MONTELUKAST SODIUM 10 MG TAB PO SCH (18:39)
[2019-03-09] MEDS ORDERED: PROGESTERONE,MICR 100 MG CAP PO SCH (21:00)
[2019-03-10] MEDS: oxyCODONE IR 5 MG TAB PO PRN ×4 (03:46→21:14)
[2019-03-10] MEDS: ACETAMINOPHEN 325 MG TAB PO PRN ×3 (03:46→21:15)
[2019-03-10 05:06] LABS: INR 1.33 (0.83-1.16); PROTIME(PATIENT) 15.9 SEC (12.0-15.0)
[2019-03-10] MEDS: Progesterone, Micronized [Progesterone] 200 MG PO SCH ×2 (06:18→21:13)
[2019-03-10] MEDS: HEPARIN 5,000 UNIT/0.5 ML INJ SC SCH ×3 (06:51→21:14)
--- NOTE | 2019-03-10 07:07 | SOAPPROG ---
GERRI Progress Note Assessment/Plan: POD #3: MV repair with #26 Physio annuloplasty ring, TV repair with #30 Benitez annuloplasty ring, BL PVI ablation, AtriClip exclusion TAMEKA Severe MR and moderate TR s/p MV/TV repair with annuloplasty rings - Med CT to be removed, pleural to remain - Thromboprophylaxis with Coumadin as per BL PVI ablation LAE with palpitations s/p BL PVI ablation - JR/Flutter - AF prophylaxis with BB/CCB avoided d/t bradycardia - Thromboprophylaxis with Coumadin, INR goal 2-3, duration pending stability of SR Acute post-op blood loss anemia - Stable without the need for transfusions KEVEN likely pre-renal - CR normal - - TTE to w/o pericardial effusions, stable LV/RV function - NS @ 75cc/h for 24 hours Asthma - Continue albuterol prn as per pre-op - Further mgmt as per pulm Depression - Prozac/Wellbutrin restarted DVT prophylaxis - SCDs/heparin SQ Disposition - PCU - Plan for SNF on discharge 03/10/19 13:25 Subjective: Pt c/o incisional CP and difficulty taking deep breaths. Objective: Vital Signs Temp Pulse Resp BP Pulse Ox 37.1 C 62 19 138/68 H 94 03/10/19 04:00 03/10/19 04:00 03/10/19 04:00 03/10/19 04:00 03/10/19 04:00 Laboratory Results 03/10/19 04:00 03/10/19 04:00 03/09/19 03/10/19 03/11/19 05:59 05:59 05:59 Intake Total 2700 2200 Output Total 925 1035 Balance 1775 1165 PT 15.9 SEC (12.0-15.0) H 03/10/19 04:00 INR 1.33 (0.83-1.16) H 03/10/19 04:00 Physical Exam - Physical Exam General Appearance: WD/WN (flutter), alert, no apparent distress EENT: No scleral icterus (R), No scleral icterus (L) Neck: normal inspection Respiratory: No respiratory distress Cardiac/Chest: bradycardia, other Abdomen: non-tender, soft, No distended Skin: normal color, warm/dry Extremities: pedal edema Neuro/Psych: no motor/sensory deficits, alert, normal mood/affect, oriented x 3 ICD10 Worksheet Patient Problems: Problems Problem Status Onset Acute blood loss anemia Acute S/P MVR (mitral valve repair) Acute S/P TVR (tricuspid valve repair) Acute S/P left atrial appendage ligation Acute Status post circumferential ablation of pulmonary vein Acute Chest pain Acute
[2019-03-10] MEDS: ASPIRIN 81 MG CHEWABLE TAB PO SCH (10:10)
[2019-03-10] MEDS: SENNOSIDES/DOCUSATE SODIUM TAB PO SCH ×2 (10:12→21:18)
[2019-03-10] MEDS: PANTOPRAZOLE SODIUM 40 MG TAB PO SCH (10:12)
[2019-03-10] MEDS: FUROSEMIDE 40 MG TAB PO SCH (10:13)
[2019-03-10] MEDS: FLUoxetine 20 MG CAP PO SCH (10:14)
[2019-03-10] MEDS: APP TP SCH (11:54)
[2019-03-10] MEDS: BIEST TP SCH (11:54)
[2019-03-10] MEDS: buPROPion 75 MG TAB PO SCH (11:55)
[2019-03-10] MEDS ORDERED: ACETAMINOPHEN/ASA/CAFFEINE 1 EACH TAB PO PRN (14:35)
[2019-03-10] MEDS ORDERED: WARFARIN SODIUM 2.5 MG TAB PO ONE (16:00)
[2019-03-10] MEDS: POLYETHYLENE GLYCOL 3350 17 GM PKT PO PRN (16:27)
[2019-03-10] MEDS: MONTELUKAST SODIUM 10 MG TAB PO SCH (17:24)
[2019-03-11] MEDS: ACETAMINOPHEN 325 MG TAB PO PRN ×4 (05:43→20:35)
[2019-03-11] MEDS: oxyCODONE IR 5 MG TAB PO PRN ×5 (05:43→21:04)
[2019-03-11 06:06] LABS: INR 1.76 (0.83-1.16); PROTIME(PATIENT) 19.7 SEC (12.0-15.0)
[2019-03-11] MEDS: ONDANSETRON DISINTEGRATING 4 MG TAB PO PRN (06:15)
[2019-03-11] MEDS: HEPARIN 5,000 UNIT/0.5 ML INJ SC SCH (06:18)
--- NOTE | 2019-03-11 08:11 | SOAPPROG ---
SOAP Progress Note Assessment/Plan: POD #4: MV repair with #26 Physio annuloplasty ring, TV repair with #30 Benitez annuloplasty ring, BL PVI ablation, AtriClip exclusion TAMEKA Severe MR and moderate TR s/p MV/TV repair with annuloplasty rings - Pleural drain remains, FC out - Thromboprophylaxis with Coumadin as per BL PVI ablation LAE with palpitations s/p BL PVI ablation - 70 sFlutter - AF prophylaxis with BB/CCB avoided d/t bradycardia - Thromboprophylaxis with Coumadin, INR goal 2-3, duration pending stability of SR - PW present if needed Acute post-op blood loss anemia - Stable without the need for transfusions KEVEN likely pre-renal - Resolved - TTE to w/o pericardial effusions, stable LV/RV function Asthma - Continue albuterol prn as per pre-op - Further mgmt as per pulm Depression - Prozac/Wellbutrin restarted DVT prophylaxis - SCDs/Coumadin Disposition - PCU - Plan for SNF on discharge - Tuesday/Tuesday Subjective: Feeling stronger today. Denies pain/SOB. Objective: Vital Signs Temp Pulse Resp BP Pulse Ox 37.8 C 78 20 128/64 H 98 03/11/19 07:34 03/11/19 07:34 03/11/19 07:34 03/11/19 07:34 03/11/19 07:34 Laboratory Results 03/10/19 04:00 03/11/19 05:50 03/10/19 03/11/19 03/12/19 05:59 05:59 05:59 Intake Total 2200 1558 Output Total 1035 1515 250 Balance 1165 43 -250 PT 19.7 SEC (12.0-15.0) H 03/11/19 05:50 INR 1.76 (0.83-1.16) H 03/11/19 05:50 Physical Exam - Physical Exam General Appearance: WD/WN, alert, no apparent distress, obese EENT: No scleral icterus (R), No scleral icterus (L) Neck: normal inspection Respiratory: No respiratory distress Cardiac/Chest: other (flutter) Abdomen: non-tender, soft, No distended Skin: normal color, warm/dry Extremities: pedal edema Neuro/Psych: no motor/sensory deficits, alert, normal mood/affect, oriented x 3 ICD10 Worksheet Patient Problems: Problems Problem Status Onset Acute blood loss anemia Acute S/P MVR (mitral valve repair) Acute S/P TVR (tricuspid valve repair) Acute S/P left atrial appendage ligation Acute Status post circumferential ablation of pulmonary vein Acute Chest pain Acute
[2019-03-11] MEDS ORDERED: AMIODARONE HCL 200 ML IV ONE (09:18)
[2019-03-11] MEDS ORDERED: AMIODARONE HCL 100 ML IV ONE (09:18)
[2019-03-11] MEDS: ASPIRIN 81 MG CHEWABLE TAB PO SCH (10:13)
[2019-03-11] MEDS: buPROPion 75 MG TAB PO SCH (10:13)
[2019-03-11] MEDS: FUROSEMIDE 40 MG TAB PO SCH (10:14)
[2019-03-11] MEDS: SENNOSIDES/DOCUSATE SODIUM TAB PO SCH ×2 (10:14→20:35)
[2019-03-11] MEDS: FLUoxetine 20 MG CAP PO SCH (10:14)
[2019-03-11] MEDS: PANTOPRAZOLE SODIUM 40 MG TAB PO SCH (10:14)
[2019-03-11] MEDS: BIEST TP SCH (10:17)
[2019-03-11] MEDS: APP TP SCH (10:17)
--- NOTE | 2019-03-11 11:46 | ASMTCMCOM ---
CM Note CM Note Notes: MD and therapies recommend SNF for patient, and she agrees. She requested a referral to [facility]. They have to get authorization from her insurance company. Case Managment will follow. Date Signed: 03/11/2019 11:45 AM Electronically Signed By:Corrie Boone RN
[2019-03-11] MEDS ORDERED: WARFARIN SODIUM 2.5 MG TAB PO ONE (16:00)
[2019-03-11] MEDS: MONTELUKAST SODIUM 10 MG TAB PO SCH (16:47)
[2019-03-11] MEDS ORDERED: AMIODARONE HCL 540 MG in D5W 300 ML IV ONE (17:00)
[2019-03-11] MEDS: Progesterone, Micronized [Progesterone] 200 MG PO SCH (20:36)
[2019-03-11] MEDS: POLYETHYLENE GLYCOL 3350 17 GM PKT PO PRN (20:51)
[2019-03-11] MEDS: BENZONATATE 100 MG CAP PO PRN (22:12)
[2019-03-12] MEDS: traMADol 50 MG TAB PO PRN (00:03)
[2019-03-12] MEDS: ACETAMINOPHEN 325 MG TAB PO PRN ×3 (05:51→19:48)
[2019-03-12] MEDS: oxyCODONE IR 5 MG TAB PO PRN ×3 (05:54→19:49)
[2019-03-12] MEDS: ONDANSETRON DISINTEGRATING 4 MG TAB PO PRN ×2 (05:56→13:43)
[2019-03-12 06:29] LABS: INR 1.9 (0.83-1.16); PROTIME(PATIENT) 20.9 SEC (12.0-15.0)
--- NOTE | 2019-03-12 07:10 | SOAPPROG ---
SOMATTHEW Progress Note Assessment/Plan: POD #5: MV repair with #26 Physio annuloplasty ring, TV repair with #30 Benitez annuloplasty ring, BL PVI ablation, AtriClip exclusion TAMEKA Severe MR and moderate TR s/p MV/TV repair with annuloplasty rings - Pleural to be removed today, FC out - Thromboprophylaxis with Coumadin as per BL PVI ablation LAE with palpitations s/p BL PVI ablation - Rate-controlled flutter - cardioversion today - AF prophylaxis with Amiodarone - Thromboprophylaxis with Coumadin, INR goal 2-3, duration pending stability of SR - PW to be cut today Acute post-op blood loss anemia - Stable without the need for transfusions KEVEN likely pre-renal - Resolved - TTE to w/o pericardial effusions, stable LV/RV function Asthma - Continue albuterol prn as per pre-op - Further mgmt as per pulm Depression - Prozac/Wellbutrin restarted DVT prophylaxis - SCDs/Coumadin Disposition - PCU - Plan for SNF discharge - Tuesday Subjective: Incisional pain well-controlled. Denies SOB. Objective: Vital Signs Temp Pulse Resp BP Pulse Ox 36.6 C 65 12 109/81 H 93 03/12/19 04:00 03/12/19 04:00 03/12/19 04:00 03/12/19 04:00 03/12/19 04:00 Laboratory Results 03/10/19 04:00 03/11/19 05:50 03/11/19 03/12/19 03/13/19 05:59 05:59 05:59 Intake Total 1558 1677 200 Output Total 1515 755 90 Balance 43 922 110 PT 20.9 SEC (12.0-15.0) H 03/12/19 05:55 INR 1.90 (0.83-1.16) H 03/12/19 05:55 Physical Exam - Physical Exam General Appearance: WD/WN, alert, no apparent distress EENT: No scleral icterus (R), No scleral icterus (L) Neck: normal inspection Respiratory: No respiratory distress Cardiac/Chest: other (flutter) Abdomen: non-tender, soft, No distended Skin: normal color, warm/dry Extremities: pedal edema Neuro/Psych: no motor/sensory deficits, alert, normal mood/affect, oriented x 3 ICD10 Worksheet Patient Problems: Problems Problem Status Onset Acute blood loss anemia Acute S/P MVR (mitral valve repair) Acute S/P TVR (tricuspid valve repair) Acute S/P left atrial appendage ligation Acute Status post circumferential ablation of pulmonary vein Acute Chest pain Acute
[2019-03-12] MEDS: FUROSEMIDE 40 MG TAB PO SCH ×2 (09:07→14:25)
[2019-03-12] MEDS: ASPIRIN 81 MG CHEWABLE TAB PO SCH ×2 (09:07→14:25)
[2019-03-12] MEDS: FLUoxetine 20 MG CAP PO SCH ×2 (09:07→14:25)
[2019-03-12] MEDS: AMIODARONE HCL 200 MG TAB PO SCH ×3 (09:07→21:45)
[2019-03-12] MEDS: PANTOPRAZOLE SODIUM 40 MG TAB PO SCH ×2 (09:07→14:26)
[2019-03-12] MEDS: SENNOSIDES/DOCUSATE SODIUM TAB PO SCH ×3 (09:07→21:45)
[2019-03-12] MEDS: buPROPion 75 MG TAB PO SCH ×2 (09:07→14:25)
[2019-03-12] MEDS ORDERED: NS 500 ML IV ONE (12:23)
[2019-03-12] MEDS ORDERED: MIDAZOLAM 2 MG/2 ML VIAL IVP ONE (12:23)
[2019-03-12] MEDS ORDERED: BENZOCAINE UNIT DOSE SPRAY HURRICAINE MM ONE (12:23)
[2019-03-12] MEDS ORDERED: ATROPINE SULFATE 1 MG/10 ML SYR IVP ONE (12:23)
[2019-03-12] MEDS ORDERED: fentaNYL 100 MCG/2 ML INJ IVP ONE ×2 (12:23→13:45)
--- NOTE | 2019-03-12 12:28 | PDANEPAE ---
ANE History of Present Illness 63 yo for quin/cv ANE Past Medical History - Cardiovascular History Hx Hypertension: Yes Hx Arrhythmias: No Hx Chest Pain: No Hx Coronary Artery / Peripheral Vascular Disease: No Hx CHF / Valvular Disease: Yes Hx Palpitations: Yes Cardiovascular History Comment: mitral valve prolapse. tricupsid valve disorder. pulm htn - Pulmonary History Hx COPD: No Hx Asthma/Reactive Airway Disease: Yes Hx Recent Upper Respiratory Infection: No Hx Oxygen in Use at Home: No Hx Sleep Apnea: Yes Sleep Apnea Screening Result - Last Documented: Positive Pulmonary History Comment: hx of bronchitis. asthma r/t allergies. delaney positive uses cpap. chronic cough - Neurologic History Hx Cerebrovascular Accident: No Hx Seizures: No Hx Dementia: No Neurologic History Comment: DDD. hx of migraines - Endocrine History Hx Diabetes: No Endocrine History Comment: sjogrens syndrome - Renal History Hx Renal Disorders: Yes Renal History Comment: frequency - Liver History Hx Hepatic Disorders: Yes Hepatic History Comment: hx of fatty liver disease several years ago- pt reports liver numbers have been good since - Neurological & Psychiatric Hx Hx Neurological and Psychiatric Disorders: Yes Neurological / Psychiatric History Comment: anxiety. depression - Cancer History Hx Cancer: Yes Cancer History Comment: basal cell removed from arm a few years ago - Congenital Disorder History Hx Congenital Disorders: No - GI History Hx Gastrointestinal Disorders: Yes Gastrointestinal History Comment: reflux. IBS. hx of egd and colonoscopy - Other Health History Other Health History: wears glasses. bilateral hearing aides. eczema spot on arm. fibromyalgia - Chronic Pain History Chronic Pain: Yes (fibromyalgia) - Surgical History Prior Surgeries: juan. colonoscopy. egd. thyroid lobectomy. t&a. wisdom teeth ANE Review of Systems Review of Systems: - Exercise capacity METS (RN): 3 METS - Pacemaker Pacemaker Set Rate: 40 ANE Patient History - Allergies Allergies/Adverse Reactions: amoxicillin trihydrate [From Augmentin] Allergy (Verified 02/26/19 12:42) STOMACH PAIN/UPSET, NAUSEA codeine [Codeine] Allergy (Verified 02/26/19 12:42) "FEELS WIRED" Gadolinium-Containing Contrast Medi Allergy (Verified 02/26/19 12:42) gluten Allergy (Verified 02/26/19 12:42) latex Allergy (Verified 02/26/19 12:42) Rash potassium clavula *RETIRED-08/07/12 [From Augmentin] Allergy (Verified 02/26/19 12:42) STOMACH PAIN/UPSET, NAUSEA - Home Medications Home Medications: Azelastine [Astelin Nasal [place] (RX)] 1 sprays EACHNARE BID PRN 03/01/19 [Last Taken Unknown] Benzonatate [Tessalon [place] (RX)] 100 mg PO TID PRN 03/01/19 [Last Taken Unknown] Diltiazem HCl [Diltiazem 24Hr ER] 120 mg PO HS 03/01/19 [Last Taken Unknown] FLUoxetine [Prozac 20 MG (*)] 20 mg PO DAILY 03/01/19 [Last Taken Unknown] Levalbuterol Inhaler [Xopenex Hfa Inhaler (*)] 2 puffs IH Q6H PRN 03/01/19 [ Last Taken Unknown] Montelukast Sodium [Singulair 10 mg (*)] 10 mg PO DAILY@1800 03/01/19 [Last Taken Unknown] buPROPion [Wellbutrin 75mg (*)] 75 mg PO DAILY 03/01/19 [Last Taken Unknown] Biest 2.5/2.5mg/Gm 1 diana TP DAILY 03/09/19 [Last Taken Unknown] Progesterone, Micronized [Progesterone] 200 mg PO HS 03/09/19 [Last Taken Unknown] - NPO status NPO Since - Liquids (Date): 03/06/19 NPO Since - Liquids (Time): 22:30 NPO Since - Solids (Date): 03/07/19 NPO Since - Solids (Time): 07:00 - Smoking Hx Smoking Status: Former smoker - Alcohol Use Alcohol Use: None - Family Anes Hx Family Hx Anesthesia Complications: none ANE Labs/Vital Signs - Labs Result Diagrams: 03/10/19 04:00 03/11/19 05:50 - Vital Signs Blood Pressure: 133/64 Heart Rate: 66 Respiratory Rate: 18 O2 Sat (%): 2 Height: 5 ft 5 in Weight: 100.4 kg ANE Physical Exam - Airway Neck exam: FROM Mallampati Score: Class 2 Mouth exam: normal dental/mouth exam - Pulmonary Pulmonary: no respiratory distress - Cardiovascular Cardiovascular: regular rate and rhythym - ASA Status ASA Status: III ANE Anesthesia Plan Anesthesia Plan: GA with mask
[2019-03-12] MEDS ORDERED: PROPOFOL 200 MG/20 ML VIAL ONE (12:29)
--- NOTE | 2019-03-12 12:59 | POSTANESTH ---
Post Anesthetic Evaluation Cardiovascular Status: Normal, Stable Respiratory Status: Similar to Pre-op Cond. Level of Consciousness/Mental Status: Can Participate in Eval Pain Control: Adequate, Prn Tx Ordered Nausea/Vomiting Control: Adequate, Prn Tx Ordered Complications Possibly Related to Anesthesia: None Noted
--- NOTE | 2019-03-12 14:28 | ASMTCMCOM ---
CM Note CM Note Notes: CM reviewed pts chart. Richard is still in the process of getting auth. CM sent updates. CM to follow. Plan: [facility] SNF Date Signed: 03/12/2019 02:26 PM Electronically Signed By:HALEY Shannon
[2019-03-12] MEDS ORDERED: WARFARIN SODIUM 2.5 MG TAB PO ONE (16:00)
[2019-03-12] MEDS: BIEST TP SCH (16:03)
[2019-03-12] MEDS: APP TP SCH (16:03)
--- NOTE | 2019-03-12 16:23 | ECHO ---
[email or web address] [address] [address] Main: [phone] Echocardiography Examination Transesophageal Name: REGAN LARSON MR#: [id number] Study Date: 03/12/2019 Study Time: 12:19 PM Date of : 1955 Age: 63 year(s) Height: ( ) Weight: ( ) BSA: Gender: Female Examination: NUPUR Contrast: Image Quality: Rhythm: Heart Rate: BP: / Indication: Pre Cardioversion Procedure Staff Referring Physician: Experienced Truck Driver: Joseph Rosado [facility] Reading Physician: Unruly Loja MD Requesting Provider: Ordering Physician: Demond Boudreaux DO Indication: Pre Cardioversion Conclusions 1. This is a transesophageal echocardiogram performed prior to DC cardioversion. 2. Normal left ventricular systolic function. 3. The left atrial appendage has been ligated. There is no thrombus within the left atrium. 4. The mitral valve is status post repair. There is trivial mitral regurgitation. 5. The tricuspid valve is status post repair. There is trivial tricuspid regurgitation. 6. The aortic valve is trileaflet. There is no aortic stenosis or insufficiency. Findings Left Ventricle: The EF is visually estimated to be 65 %. Left Atrium: No thrombus is identified in the left atrium. The left atrial appendage has been ligated. Mitral Valve: An annuloplasty ring is noted in the mitral valve position. Trivial MV prosthesis regurgitation. Aortic Valve: Aortic leaflets are normal in appearance and function. No aortic valve regurgitation. There is no aortic stenosis. Tricuspid Valve: There is a tricuspid valve ring. Trivial prosthesis regurgitation. Pulmonic Valve: Pulmonic leaflets are normal in appearance and function. Aorta: Patient: REGAN LARSON Study Date: 03/12/2019 Page 1 of 2 12:19 PM The aorta is normal. Exam Details Procedure Ordered: NUPUR (No Signature Object) Patient: REGAN LARSON Study Date: 03/12/2019 Page 2 of 2 12:19 PM [id number]
--- NOTE | 2019-03-12 16:26 | CPEKG ---
Test Reason : OPEN Blood Pressure : / mmHG Vent. Rate : 070 BPM Atrial Rate : 195 BPM P-R Int : 228 ms QRS Dur : 084 ms QT Int : 422 ms P-R-T Axes : 000 056 076 degrees QTc Int : 456 ms Atrial fibrillation Compared with 03/07/2019 AF now present. Pacing absent Confirmed by Laura Piña ([id number]) on 03/12/2019 4:25:40 PM Referred By: Demond Boudreaux Confirmed By:Laura Piña
[2019-03-12] MEDS: MONTELUKAST SODIUM 10 MG TAB PO SCH (18:17)
[2019-03-12] MEDS: Progesterone, Micronized [Progesterone] 200 MG PO SCH (21:45)
[2019-03-12] MEDS: METOPROLOL TARTRATE 25 MG TAB PO SCH (21:46)
[2019-03-13] MEDS: traMADol 50 MG TAB PO PRN ×3 (02:08→15:57)
[2019-03-13 06:25] LABS: INR 2.09 (0.83-1.16); PROTIME(PATIENT) 22.5 SEC (12.0-15.0)
--- NOTE | 2019-03-13 08:08 | SOAPPROG ---
SOAP Progress Note Assessment/Plan: POD #6: MV repair with #26 Physio annuloplasty ring, TV repair with #30 Benitez annuloplasty ring, BL PVI ablation, AtriClip exclusion TAMEKA Severe MR and moderate TR s/p MV/TV repair with annuloplasty rings - Pleural to be removed today, FC out - Thromboprophylaxis with Coumadin as per BL PVI ablation LAE with palpitations s/p BL PVI ablation - Rate-controlled flutter - cardioversion unsuccessful - AF prophylaxis with Amiodarone/BB - Thromboprophylaxis with Coumadin, INR goal 2-3, duration pending stability of SR - PW to be cut today Acute post-op blood loss anemia - Stable without the need for transfusions KEVEN likely pre-renal - Resolved - TTE to w/o pericardial effusions, stable LV/RV function Asthma - Continue albuterol prn as per pre-op - Further mgmt as per pulm Depression - Prozac/Wellbutrin restarted DVT prophylaxis - SCDs/Coumadin Disposition - PCU - Plan for SNF discharge today pending insurance approval Subjective: No complaints. Objective: Vital Signs Temp Pulse Resp BP Pulse Ox 36.6 C 73 20 128/68 H 97 03/13/19 07:49 03/13/19 07:49 03/13/19 07:49 03/13/19 07:49 03/13/19 07:49 Laboratory Results 03/13/19 06:00 03/13/19 06:00 03/12/19 03/13/19 03/14/19 05:59 05:59 05:59 Intake Total 1677 1860 Output Total 755 1460 Balance 922 400 PT 22.5 SEC (12.0-15.0) H 03/13/19 06:00 INR 2.09 (0.83-1.16) H 03/13/19 06:00 Physical Exam - Physical Exam General Appearance: WD/WN, alert, no apparent distress EENT: No scleral icterus (R), No scleral icterus (L) Neck: normal inspection Respiratory: No respiratory distress Cardiac/Chest: irregularly irregular, other (flutter) Abdomen: non-tender, soft, No distended Skin: normal color, warm/dry Extremities: pedal edema Neuro/Psych: no motor/sensory deficits, alert, normal mood/affect, oriented x 3 ICD10 Worksheet Patient Problems: Problems Problem Status Onset Acute blood loss anemia Acute S/P MVR (mitral valve repair) Acute S/P TVR (tricuspid valve repair) Acute S/P left atrial appendage ligation Acute Status post circumferential ablation of pulmonary vein Acute Chest pain Acute
[2019-03-13] MEDS ORDERED: FUROSEMIDE 40 MG/4 ML VIAL IVP ONE (08:45)
[2019-03-13] MEDS ORDERED: FUROSEMIDE 40 MG TAB PO SCH ×2 (09:00→15:00)
[2019-03-13] MEDS: FLUoxetine 20 MG CAP PO SCH (09:09)
[2019-03-13] MEDS: ASPIRIN 81 MG CHEWABLE TAB PO SCH (09:09)
[2019-03-13] MEDS: buPROPion 75 MG TAB PO SCH (09:09)
[2019-03-13] MEDS: SENNOSIDES/DOCUSATE SODIUM TAB PO SCH (09:09)
[2019-03-13] MEDS: ACETAMINOPHEN 325 MG TAB PO PRN ×2 (09:10→15:56)
[2019-03-13] MEDS: AMIODARONE HCL 200 MG TAB PO SCH (09:10)
[2019-03-13] MEDS: PANTOPRAZOLE SODIUM 40 MG TAB PO SCH (09:10)
[2019-03-13] MEDS: METOPROLOL TARTRATE 25 MG TAB PO SCH (09:13)
[2019-03-13] MEDS: BIEST TP SCH (09:27)
[2019-03-13] MEDS: APP TP SCH (09:27)
--- NOTE | 2019-03-13 14:02 | PDIAF ---
- Diagnosis Diagnosis: s/p MVRepair, TVRepair, pulmonary vein isolation, TAMEKA Code Status: Full Code - Medication Management Discharge Medications: electronically signed and located in the Home Medication List. - Orders Services needed: Registered Nurse, Certified Life Science Research Assistant, Master Quencher Operator , Physical Therapy, Occupational Therapy Isolation Type: None Oxygen: prn SPO2 <89% Diet Recommendation: cardiac -low fat low salt Diet Texture: Regular Texture Diet, Thin Liquids, Meds Whole w/Liquids Weigh Patient: daily [place]: Not applicable Activity/Weight Bearing Restrictions: see additional instructions Additional Instructions: Discharge Instructions: Call [facility] cardiac rehab to enroll in phase 2 classes if not already arranged. Sternal precautions x 4 weeks. Avoid lifting > 10lbs with an outstretched arm. Avoid push/pull activities. No driving until cleared by surgery. Elevate low legs at rest. Avoid prolonged standing or dangling. Cleanse wounds once daily with soap and water. Avoid immersion (pool, hot tub, bath) until fully healed. Leave all wounds open to air. Avoid creams or ointments until fully healed. Log daily vital signs once home: weight, heart rate, blood pressure, and pulse oximetry if on oxygen. Call [facility] for weight gain > 5lbs or worsening leg swelling. Call [facility] for resting heart rate > 120 OR < 50. Call [facility] for systolic blood pressure consistently < 90 or > 150. Ok to use [id number] medications for bowel function or pain. Try to use ibuprofen minimally if on Coumadin. Chest x-ray Instructions: Please obtain a chest xray prior to surgical appointment. Chest x-rays dont require an appointment. Come to the Emergency Room entrance at the [facility] location. Sign in at the computer kiosk in the entryway. You will be given a number and may sit in the waiting area until called. You will be registered and directed to the Imaging desk on the 1st floor. This process can take up to an hour. Make sure you allow enough time before your appointment to have your x-ray taken. - Labs/Radiology BMP Date: 03/16/19 (results to [facility]) CBC w/diff Date: 03/16/19 (results to [facility]) PT/INR Date: 03/14/19 (repeat INR daily until 3 consecutive INR goal 2-3 then per protocol) Imaging Orders: CXR prior to Dr. Chowdhury clinic visit Call or Fax Lab and Imaging Results to: abril Hahn RN - [facility] - Follow Up Care Current Providers and Referrals: Katie Wang CNP [Certified Nurse Practioner] - follow up as scheduled Bala Valencia DO [Primary Care Provider] - Graeme Chowdhury MD [Medical Doctor] - 03/20/19 10:45 am
--- NOTE | 2019-03-13 14:09 | PDDCSUM ---
Discharge Summary Discharge Summary: DATE OF ADMISSION: 03/06/19 DATE OF DISCHARGE: 03/13/19 DISPOSITION: SNF - [facility] ACTIVITY: Instructed on sternal precautions, activity restrictions, and problems to call [employer]. ADMISSION DIAGNOSES: Severe mitral regurgitation Moderate tricuspid regurgitation Left atrial dilatation Palpitations Hyperlipidemia Asthma Depression DISCHARGE DIAGNOSES: As above, plus S/p MVR, TVR, bilateral PVI, AtriClip exclusion of TAMEKA Acute blood loss anemia Acute kidney injury Post-op atrial fibrillation/flutter s/p unsuccessful DCCV PROCEDURES PERFORMED: 03/06/19 (Juan) LHC/RHC 03/07/19 (Kanika) mitral valve repair w #26 physio II ring, tricuspid valve repair w # 30 lopez ring, 40 mm AtriClip to left atrial appendage, bilateral pulmonary vein ablation 03/12/19 NUPUR/DCCV unsuccessful - final report pending HISTORY OF PRESENT ILLNESS: This is a pleasant 63F who presented for MVR/R, TVR/R. She has had progressive MR (mild-moderate 2014, moderate-severe 2017) and TR (mild 2014, mild-moderate 2018) and left atrial enlargement. She had SOB with evening peripheral edema ( worse on R>L) and frequent palpitations. HOSPITAL COURSE BY PROBLEM LIST: Severe MR and moderate TR s/p MVRepair/TVRepair w B/L PVI/TAMEKA - Pre op EF 62%. LHC negative for significant coronary artery disease. RHC with normal hemodynamics. Immediately junctional rhythm after surgery requiring v-pacing. Coumadin was initiated for PVI/TAMEKA with the intention of 3-6 months of therapy. However, she went into atrial flutter/fibrillation on POD#3. She went for DCCV on 03/12/19. NUPUR confirmed closure of TAMEKA as well as trivial MR, TR. This was unsuccessful. Coumadin was therapeutic at discharge and will continue per the stability of her rhythm. Acute kidney injury - POD#2. Thought to be prerenal in nature with Cr up to 1.3 & K 5. She responded to IVF with normalization of her Creatinine. Discharged on lasix, however, K was not supplemented given patients K at 4.9. Acute post-op blood loss anemia - expected, without need for transfusions. PERTINENT DISCHARGE CLINICAL INFORMATION: Sternotomy CDI and stable HR 74 BP 110/64 SpO2 91 1L preop wt 97 kg, discharge wt 100 kg WBC 9.93 Hgb 8.9 Hct 27.1 Plt 247 Na 131 K 4.9 Cr 0.5 INR 2.09 DISCHARGE MEDICATIONS: CONTINUE your pre-op medications except stated below. STOP these medications: Diltiazem (for HTN) NEW medications: Amiodarone 200 mg PO BID ASA 81 mg PO daily Lasix 40 mg PO BID Lopressor 12.5 mg PO BID Warfarin 2.5 mg PO daily for goal INR 2-3 Tylenol & Tramadol PRN FOLLOW UP APPOINTMENTS: 1. CV surgery: with Dr. Chu at [facility] on 03/20/19 2. Cardiology, Katie Wang, as directed 3. PCP, as directed 4. INR, as directed by coumadin clinic FOLLOW UP TESTING: CXR prior to surgical appointment. CBC/BMP/INR at [facility]
--- NOTE | 2019-03-13 14:15 | ASMTLACE ---
KRISSY Length of stay for Answers: 7-13 days current admission Acuity / Level of Answers: Yes Care: Did the patient have an inpatient admission? Comorbidities - select Answers: Congestive heart failure all that apply Opioid dependence / Chronic pain Other Notes: HTN # of Emergency department Answers: 0 visits in the last 6 months Social determinants Answers: Mental health diagnosis (anxiety, depression, pers onality disorders, etc.) Score: 18 Date Signed: 03/13/2019 02:14 PM Electronically Signed By:HALEY Shannon
--- NOTE | 2019-03-13 14:17 | ASMTDCNOTE ---
Case Management Discharge Discharge Order Complete? Answers: Yes Patient to Obtain Answers: Other Notes: [facility] Medications Transportation Arranged Answers: Other Notes: [facility] w/c transport Transport will Pick (Date 03/13/2019 06:00 PM & Time) EMTALA Complete Answers: No Case Management Transport Answers: No Form Complete Faxed Final Orders Answers: Yes Agency/Facility Transfer Answers: Yes Report Printed & Faxed to Receiving Agency Family Notified Answers: No Discharge Comments Notes: Pts case discussed w/ BALDO Kim and BALDO Perea. Pt is being d/c'd today. [facility] was able to get auth. DC orders sent. SATISH Mendoza to call to give report. CM available for changes. Plan: [facility] Date Signed: 03/13/2019 02:16 PM Electronically Signed By:HALEY Shannon
--- NOTE | 2019-03-13 14:21 | ASDISCHSUM ---
Discharge Information Plan Status:SNF Medically Cleared to Leave: Discharge Date: D/C Disposition: ADT D/C Disposition:Custodial Facility Projected Discharge Date:03/12/2019 11:00 AM Transportation at D/C: Discharge Delay Reason: Follow-Up Date:03/12/2019 11:00 AM Discharge Slot: Final Diagnosis: Placement Information Referral Type:*Detention/SNF Referral ID:[id number] Provider Name:Francoise Kyle Address 1:[address] [facility] Phone Number: Address 2: Fax Number: Mirtha:Sandro Selection Factors: State:[place] Patient Contact Information Contact Name:NAOMI Relationship: Address:[address] [place] [address] [address] City:[place] Phone: State/Zip Code:[place] [address] Email: Financial Information Financial Class:BCOP Primary Plan Desc:JAKE [employer]INSON PPO Primary Plan Number:[id number] Secondary Plan Desc: Secondary Plan Number: Assessment Information [facility] CM Progress Note CM Note CM Note Notes: Pt is a 63 y/o female admitted for shortness of breath. Pt is having open heart surgery today. Needs are TBD at this time. CM to follow. Plan: TBD Date Signed: 03/07/2019 09:20 AM Electronically Signed By:HALEY Shannon LACE LACShahid Length of stay for Answers: 7-13 days current admission Acuity / Level of Answers: Yes Care: Did the patient have an inpatient admission? Comorbidities - select Answers: Congestive heart failure all that apply Opioid dependence / Chronic pain Other Notes: HTN # of Emergency department Answers: 0 visits in the last 6 months Social determinants Answers: Mental health diagnosis (anxiety, depression, pers onality disorders, etc.) Score: 18 Date Signed: 03/13/2019 02:14 PM Electronically Signed By:HALEY Shannon [facility] CM Progress Note CM Note CM Note Notes: Patient will transfer to the floor today. PT/OT recommending home as patient will most likely do cardiac rehab on an outpatient basis. D/C plan: independent. CM available for any d/c needs that might arise. Date Signed: 03/09/2019 11:29 AM Electronically Signed By:Altagracia Root LCSW [facility] CM Progress Note CM Note CM Note Notes: MD and therapies recommend SNF for patient, and she agrees. She requested a referral to [facility]. They have to get authorization from her insurance company. Case Managment will follow. Date Signed: 03/11/2019 11:45 AM Electronically Signed By:Corrie Boone RN [facility] CM Progress Note CM Note CM Note Notes: CM reviewed pts chart. Richard is still in the process of getting auth. CM sent updates. CM to follow. [facility] Date Signed: 03/12/2019 02:26 PM Electronically Signed By:HALEY Shannon Case Management Discharge Plan Note Case Management Discharge Discharge Order Complete? Answers: Yes Patient to Obtain Answers: Other Notes: [facility] Medications Transportation Arranged Answers: Other Notes: [facility] w/c transport Transport will Pick (Date 03/13/2019 06:00 PM & Time) EMTALA Complete Answers: No Case Management Transport Answers: No Form Complete Faxed Final Orders Answers: Yes Agency/Facility Transfer Answers: Yes Report Printed & Faxed to Receiving Agency Family Notified Answers: No Discharge Comments Notes: Pts case discussed w/ BALDO Kim and BALDO Perea. Pt is being d/c'd today. [facility] was able to get auth. DC orders sent. SATISH Mendoza to call to give report. CM available for changes. [facility] Date Signed: 03/13/2019 02:16 PM Electronically Signed By:HALEY Shannon Intervention Information
[2019-03-13] MEDS ORDERED: WARFARIN SODIUM 2.5 MG TAB PO SCH (16:00)
[2019-03-13 17:46] VITALS: BP 148/82
== END 2019-03-13 18:05 | DRG 217 ==
LOC: FCATH 09:12 → F2W 14:40 → F2N 03-07 08:18 → OBSVTOIN 03-07 12:38 → F2N 03-07 12:43 → F2W 03-09 15:00
PROVIDERS: ADMIT Internal Medicine Interventional Cardiology; ATTEND Thoracic Surgery (Cardiothoracic Vascular Surgery)
PROC: 4A023N8 Measurement of Cardiac Sampling and Pressure, Bilateral, Percutaneous Approach (ICD-10-PCS; 2019-03-06)
PROC: B2111ZZ Fluoroscopy of Multiple Coronary Arteries using Low Osmolar Contrast (ICD-10-PCS; 2019-03-06)
PROC: B2151ZZ Fluoroscopy of Left Heart using Low Osmolar Contrast (ICD-10-PCS; 2019-03-06)
PROC: 02RG08Z Replacement of Mitral Valve with Zooplastic Tissue, Open Approach (ICD-10-PCS; principal; 2019-03-07 08:45)
PROC: 025S0ZZ Destruction of Right Pulmonary Vein, Open Approach (ICD-10-PCS; principal; 2019-03-07 08:45)
PROC: 025T0ZZ Destruction of Left Pulmonary Vein, Open Approach (ICD-10-PCS; principal; 2019-03-07 08:45)
PROC: 02L70CK Occlusion of Left Atrial Appendage with Extraluminal Device, Open Approach (ICD-10-PCS; principal; 2019-03-07 08:45)
PROC: 02RJ08Z Replacement of Tricuspid Valve with Zooplastic Tissue, Open Approach (ICD-10-PCS; principal; 2019-03-07 08:45)
PROC: 5A1221Z Performance of Cardiac Output, Continuous (ICD-10-PCS; principal; 2019-03-07 08:45)
PROC: B246ZZ4 Ultrasonography of Right and Left Heart, Transesophageal (ICD-10-PCS; 2019-03-12)
PROC: 5A2204Z Restoration of Cardiac Rhythm, Single (ICD-10-PCS; 2019-03-12)
DX: I08.1 Rheumatic disorders of both mitral and tricuspid valves (principal); D62 Acute posthemorrhagic anemia; N17.9 Acute kidney failure, unspecified; I48.92 Unspecified atrial flutter; I48.91 Unspecified atrial fibrillation; M35.00 Sjogren syndrome, unspecified; R91.8 Other nonspecific abnormal finding of lung field; E78.5 Hyperlipidemia, unspecified; J45.909 Unspecified asthma, uncomplicated; F32.9 Major depressive disorder, single episode, unspecified; Z87.440 Personal history of urinary (tract) infections; Z87.891 Personal history of nicotine dependence
CPT/HCPCS: 82435-PO; 82565-PO; 82947-PO; 83605-ER; 84132-PO; 84295-PO; 84520-PO; 85014-ER; 97116-GP; 97162-GP; 97166-GO; 97530-GO; 97530-GP; 97535-GO; C1769; G0378; J0153; J0282; J0690; J1100; J1170; J1200; J1265; J1644; J1815; J1885; J1940; J2001; J2150; J2250; J2260; J2270; J2370; J2405; J2704; J2720; J2930; J3010; J3475; J3480; P9041; Q9967

== ENCOUNTER → 2019-03-20 | Outpatient (CLI) | payer OTHER ==
[~2019-03-20] MED LIST changes: -GADOBUTROL 10 ML VIAL IVP ONE; +LIDOCAINE 1% 300 MG/30 ML SDV ONE
== END ==
LOC: FIMAGING 09:47
PROVIDERS: ATTEND Thoracic Surgery (Cardiothoracic Vascular Surgery)
PROC: 0W993ZZ Drainage of Right Pleural Cavity, Percutaneous Approach (ICD-10-PCS; principal; 2019-03-20)
DX: J90 Pleural effusion, not elsewhere classified (principal)

== ENCOUNTER → 2019-03-27 | Outpatient (CLI) | payer OTHER | LOC: FLAB 11:42 | PROVIDERS: ATTEND Thoracic Surgery (Cardiothoracic Vascular Surgery) | DX: J90 Pleural effusion, not elsewhere classified (principal) ==

== ENCOUNTER → 2019-04-04 | Outpatient (CLI) | payer OTHER | LOC: FIMAGING 10:28 | PROVIDERS: ATTEND Thoracic Surgery (Cardiothoracic Vascular Surgery) | DX: J90 Pleural effusion, not elsewhere classified (principal) ==

== ENCOUNTER → 2019-04-10 | Outpatient (CLI) | payer OTHER | LOC: FIMAGING 10:13 | PROVIDERS: ATTEND Thoracic Surgery (Cardiothoracic Vascular Surgery) | DX: Z09 Encounter for follow-up examination after completed treatment for conditions other than malignant neoplasm (principal); I51.7 Cardiomegaly; Z86.79 Personal history of other diseases of the circulatory system; Z95.2 Presence of prosthetic heart valve; Z98.890 Other specified postprocedural states ==

== ENCOUNTER → 2019-04-27 | Outpatient (CLI) | payer OTHER | LOC: FIMAGING 11:45 ==

== ENCOUNTER 2019-05-01 16:50 | Inpatient (IN) | payer OTHER | END 2019-05-05 11:53 | disposition home health service (06) | LOC: F2W 16:50 ==

== ENCOUNTER 2019-05-18 10:11 | Observation (INO) | payer OTHER | END 2019-05-19 16:30 | disposition home or self-care (01) | LOC: FSGY 10:11 → F2W 12:41 ==